=== PATIENT | male | born 2000 | race African-American/Black ===

== ENCOUNTER 2022-12-28 00:36 | Emergency (ER) | payer SELFPAY ==
[~2022-12-28] VITALS: Ht 175.3 cm; Wt 68.2 kg
[2022-12-28 00:39] VITALS: BP 142/86
[2022-12-28] MEDS ORDERED: CYCL-448 PO (03:08)
== END 2022-12-28 03:11 | disposition home or self-care (01) ==
LOC: EMS 00:39
DX: S13.4XXA Sprain of ligaments of cervical spine, initial encounter (principal); V49.9XXA Car occupant (driver) (passenger) injured in unspecified traffic accident, initial encounter; Y93.89 Activity, other specified; Y92.89 Other specified places as the place of occurrence of the external cause; Y99.8 Other external cause status
CPT/HCPCS: 72040; 99283